=== PATIENT | female | born 1990 | race Caucasian/White ===

== ENCOUNTER 2021-10-28 15:46 | Emergency (ER) | payer MEDICAID, SELFPAY ==
[2021-10-28] MEDS ORDERED: Acetaminophen 500 MG TAB ONE (16:26)
[2021-10-28 16:27] LABS: #Basophils 0.1 10x3/uL (0.0-0.2); #Monocytes 0.6 10x3/uL (0.0-1.1); #Neutrophils 6.1 10x3/uL (1.5-8.4); %Basophils 0.6 % (0.0-2.0); %Lymphocytes 13.1 % (18.0-47.0); %Neutrophils 77.9 % (40.0-75.0); Mean Corpuscular HGB CONC 34.3 g/dL (32.0-36.0); Mean Corpuscular Hemoglobin 30.2 pg (27.0-33.0); Mean Corpuscular Volume 88.1 fl (81.6-98.3); Mean Platelet Volume 8.8 fl (7.4-10.4); Platelet Count 283 10x3/uL (150-450); RBC Distribution Width 13.9 % (11.5-14.5); Red Blood Cell (RBC) Count 4.96 10x6/uL (3.90-5.03); White Blood Cell (WBC) Count 7.9 10x3/uL (3.5-10.5)
[2021-10-28] MEDS ORDERED: Ondansetron PF 4 MG/2 ML Vial ONE (16:27)
[2021-10-28 16:44] LABS: ALT (SGPT) 26 U/L (8-55); AST (SGOT) 17 U/L (5-34); Albumin 4.3 g/dL (3.5-5.0); Alkaline Phosphatase 85 U/L (40-110); Anion Gap 16 mmol/L (10-20); BUN (Urea Nitrogen) 21 mg/dL (7.0-18.7); Bilirubin, Total 0.5 mg/dL (0.2-1.2); Calc. Creatinine Clearance 0 mL/min (70-130); Calcium 8.7 mg/dL (7.8-10.44); Carbon Dioxide 24 mmol/L (22-29); Chloride 100 mmol/L (98-107); Glucose 106 mg/dL (70-105); Lipase 8 U/L (8-78); Potassium 3.5 mmol/L (3.5-5.1); Protein, Total 8.3 g/dL (6.0-8.3); Sodium 136 mmol/L (136-145)
[2021-10-28 17:55] LABS: Bilirubin 1+ (Negative); Blood, Urine 50 (Negative); Clarity Clear (Clear); Glucose, Urine (Dipstick) Normal (Negative); Ketone, Urine Negative (Negative); Leukocyte Negative (Negative); Nitrite Negative (Negative); Protein, Urine (Dipstick) 500 mg/dl (Neg-Trace); Specific Gravity, Urine 1.025 (1.002-1.036); Urobilinogen Normal mg/dL (Less than 2)
[2021-10-28 18:02] LABS: Pregnancy Test - Urine (BHCG) Negative (Negative); Pregu Control Background? CLEAR/WHITE (CLR/WHITE); Pregu Control Bar Appear? YES (CONTROL BAR); Specific Gravity 1.025 (1.002-1.036)
[2021-10-28 18:12] LABS: Bacteria/HPF 2+ HPF (None Seen); WBC/HPF 0-3 HPF (0-3)
[2021-10-28 18:13] LABS: Mucous/LPF 3+ LPF (<2+)
== END 2021-10-28 18:42 | disposition home or self-care (01) ==
LOC: CSHERS 15:46
DX: R11.2 Nausea with vomiting, unspecified (principal); R10.13 Epigastric pain
CPT/HCPCS: 80053; 81003; 81015; 81025; 83605; 83690; 85025; 87040; 87086; 96374; J2405

== ENCOUNTER 2022-12-24 19:43 | Emergency (ER) | payer MEDICAID, OTHER ==
[2022-12-24] MEDS ORDERED: Ketorolac Tromethamine 30 MG/ML VIAL ONE (20:08)
== END 2022-12-24 20:25 | disposition home or self-care (01) ==
LOC: CSHERS 19:43
DX: S39.012A Strain of muscle, fascia and tendon of lower back, initial encounter (principal); M62.838 Other muscle spasm; Y93.E5 Activity, floor mopping and cleaning
CPT/HCPCS: 96372; 99283; J1885

== ENCOUNTER 2024-07-13 20:07 | Day surgery (SDC) | payer OTHER ==
[2024-07-13 20:37] VITALS: BMI 40.1
[2024-07-13] MEDS ORDERED: hydrALAZINE 20 MG/ML VIAL SLOW IVP PRN (21:00)
[2024-07-13] MEDS ORDERED: Ondansetron ODT 4 MG TAB PO PRN (21:00)
[2024-07-13] MEDS: Pantoprazole DR 40 MG TAB PO SCH (21:10)
[2024-07-13] MEDS: Acetaminophen 500 MG TAB PO SCH (21:10)
[2024-07-13 21:52] LABS: #Basophils 0.07 10x3/uL (0.0-0.2); #Eosinophils 0.05 10x3/uL (0.0-0.5); #Monocytes 0.97 10x3/uL (0.0-1.1); #Neutrophils 7.75 10x3/uL (1.5-8.4); %Basophils 0.6 % (0.0-2.0); %Eosinophils 0.5 % (0.0-6.0); %Lymphocytes 17.8 % (18.0-47.0); %Monocytes 8.8 % (0.0-10.0); %Neutrophils 70.1 % (40.0-75.0); Hematocrit 36.5 % (34.9-44.5); Hemoglobin 12.5 g/dL (12.0-15.5); Mean Corpuscular HGB CONC 34.2 g/dL (32.0-36.0); Mean Corpuscular Hemoglobin 30.9 pg (27.0-33.0); Mean Corpuscular Volume 90.3 fL (81.6-98.3); Mean Platelet Volume 9.7 fL (7.4-10.4); Platelet Count 172 10x3/uL (150-450); RBC Distribution Width 13.1 % (11.5-14.5); Red Blood Cell (RBC) Count 4.04 10x6/uL (3.90-5.03); White Blood Cell (WBC) Count 11.1 10x3/uL (3.5-10.5)
[2024-07-13 21:59] LABS: ALT (SGPT) 17 U/L (8-55); AST (SGOT) 15 U/L (5-34); Albumin 2.9 g/dL (3.5-5.0); Alkaline Phosphatase 65 U/L (40-110); Anion Gap 14 mmol/L (10-20); BUN (Urea Nitrogen) 9 mg/dL (7.0-18.7); Bilirubin, Total 0.5 mg/dL (0.2-1.2); Calc. Creatinine Clearance 236 mL/min (70-130); Carbon Dioxide 23 mmol/L (22-29); Chloride 103 mmol/L (98-107); Estimated GFR 119; Globulin 3.8 g/dL (2.4-3.5); Glucose 130 mg/dL (70-105); Lipase 21 U/L (8-78); Magnesium 1.4 mg/dL (1.6-2.6); Potassium 3.3 mmol/L (3.5-5.1); Protein, Total 6.7 g/dL (6.0-8.3); Sodium 137 mmol/L (136-145)
[2024-07-13] MEDS: Magnesium Oxide 400 MG TAB PO SCH (22:39)
[2024-07-13] MEDS: Potassium Chloride 20 MEQ TAB PO SCH (22:39)
[2024-07-13 23:24] LABS: Bilirubin Neg (Negative); Blood, Urine 50 (Negative); Glucose, Urine (Dipstick) Normal (Negative); Ketone, Urine 5 mg/dL (Negative); Leukocyte Negative (Negative); Nitrite Negative (Negative); Protein, Urine (Dipstick) 100 mg/dl (Neg-Trace); Specific Gravity, Urine 1.015 (1.005-1.030); Urobilinogen Normal mg/dL (Less than 2)
[2024-07-13 23:33] LABS: Clarity Hazy (Clear)
[2024-07-13 23:36] LABS: Transitional Epithelial 0-3 HPF (None Seen)
[2024-07-13 23:37] LABS: Bacteria/HPF Rare-Few HPF (None Seen); WBC/HPF 0-3 HPF (0-3); Yeast-Hyphae Rare HPF (None Seen)
[2024-07-13 23:49] LABS: Creatinine, Urine 251.11 mg/dL (47-110)
== END 2024-07-14 00:07 | disposition home or self-care (01) ==
LOC: CSHLD/OP 20:07
PROVIDERS: ATTEND Family Medicine
DX: O21.2 Late vomiting of pregnancy (principal); O24.419 Gestational diabetes mellitus in pregnancy, unspecified control; O13.3 Gestational [pregnancy-induced] hypertension without significant proteinuria, third trimester; O99.613 Diseases of the digestive system complicating pregnancy, third trimester; K52.9 Noninfective gastroenteritis and colitis, unspecified; Z3A.34 34 weeks gestation of pregnancy; Z79.4 Long term (current) use of insulin
CPT/HCPCS: 36415; 80053; 81001; 82570; 83690; 83735; 84156; 85025; 87086; 99284

== ENCOUNTER 2024-08-05 13:40 | Inpatient (IN) | payer OTHER ==
[2024-08-05 18:56] VITALS: BMI 38.7
[2024-08-05] MEDS ORDERED: hydrALAZINE 20 MG/ML VIAL SLOW IVP PRN ×2 (22:48→23:07)
[2024-08-05] MEDS ORDERED: Acetaminophen 500 MG TAB PO SCH (23:00)
[2024-08-05] MEDS ORDERED: Misoprostol 200 MCG TAB PR PRN (23:07)
[2024-08-05] MEDS ORDERED: Butorphanol Tartrate 1 MG/ML VIAL SLOW IVP PRN (23:07)
[2024-08-05] MEDS ORDERED: Carboprost 250 MCG/ML AMP IM PRN (23:07)
[2024-08-05] MEDS ORDERED: Famotidine/PF 20 mg/2ml Vial SLOW IVP PRN (23:07)
[2024-08-05] MEDS ORDERED: Tranexamic Acid 1,000 MG/10 ML VIAL IVP PRN (23:07)
[2024-08-05] MEDS ORDERED: Ondansetron PF 4 MG/2 ML Vial IVP PRN (23:07)
[2024-08-05] MEDS ORDERED: Acetaminophen 500 MG TAB PO PRN (23:07)
[2024-08-05] MEDS ORDERED: Promethazine HCl 25 MG/ML VIAL IM PRN (23:07)
[2024-08-05] MEDS ORDERED: Diphenoxylate HCl/Atropine Tablet PO PRN (23:07)
[2024-08-05] MEDS ORDERED: Bicitra 30 ML UDCUP PO PRN (23:07)
[2024-08-05] MEDS ORDERED: Azithromycin 500 MG in Sodium Chloride 0.9% 250 ML 250 ML IVPB SCH (23:15)
[2024-08-05] MEDS ORDERED: Lactated Ringer's 1,000 ML IV SCH (23:15)
[2024-08-05 23:41] LABS: Hematocrit 36.8 % (34.9-44.5); Hemoglobin 12.9 g/dL (12.0-15.5); Mean Corpuscular HGB CONC 35.1 g/dL (32.0-36.0); Mean Corpuscular Hemoglobin 31.9 pg (27.0-33.0); Mean Corpuscular Volume 90.9 fL (81.6-98.3); Mean Platelet Volume 10.3 fL (7.4-10.4); Platelet Count 221 10x3/uL (150-450); RBC Distribution Width 13.5 % (11.5-14.5); Red Blood Cell (RBC) Count 4.05 10x6/uL (3.90-5.03); White Blood Cell (WBC) Count 11.2 10x3/uL (3.5-10.5)
[2024-08-05 23:44] LABS: ALT (SGPT) 21 U/L (8-55); AST (SGOT) 13 U/L (5-34); Albumin 3.1 g/dL (3.5-5.0); Alkaline Phosphatase 80 U/L (40-110); Anion Gap 16 mmol/L (10-20); BUN (Urea Nitrogen) 8 mg/dL (7.0-18.7); Bilirubin, Total 0.3 mg/dL (0.2-1.2); Calc. Creatinine Clearance 242 mL/min (70-130); Calcium 8.7 mg/dL (7.8-10.44); Carbon Dioxide 19 mmol/L (22-29); Chloride 105 mmol/L (98-107); Estimated GFR 120; Globulin 3.4 g/dL (2.4-3.5); Glucose 134 mg/dL (70-105); Potassium 3.4 mmol/L (3.5-5.1); Protein, Total 6.5 g/dL (6.0-8.3); Sodium 137 mmol/L (136-145)
[2024-08-06 00:04] LABS: Syphilis Antibody Nonreactive (Nonreactive); Syphilis Antibody Index 0.17 S/CO (<1.00 Non-Reactive)
[2024-08-06 00:05] LABS: HBsAg Index 0.19 S/CO (0-0.99); Hep B Surf Ag - L&D Non-Reactive S/CO (NonReactive)
[2024-08-06] MEDS ORDERED: Naloxone HCl 0.4 mg/ml Vial IVP PRN ×2 (07:32)
[2024-08-06] MEDS ORDERED: Moisturizing Cream (Eucerin) 113 GM JAR TOP PRN (07:32)
[2024-08-06] MEDS ORDERED: Naloxone HCl 0.4 mg/ml Vial IV PRN (07:32)
[2024-08-06] MEDS ORDERED: diphenhydrAMINE 50 MG/ML VIAL IVP PRN (07:32)
[2024-08-06] MEDS ORDERED: Meperidine HCl/PF 25 MG (1 mL) VIAL SLOW IVP PRN (07:32)
[2024-08-06] MEDS ORDERED: fentaNYL 50 mcg/mL 1 mL Vial SLOW IVP PRN (07:32)
[2024-08-06] MEDS ORDERED: Ondansetron PF 4 MG/2 ML Vial IVP PRN ×3 (07:32→12:21)
[2024-08-06] MEDS: CEFAZOLIN 2 GM in Sodium Chloride 0.9% 100 ML IVPB SCH (07:37)
[2024-08-06] MEDS: ePHEDrine Sulfate 50 MG/10 ML VIAL ONE ×2 (08:54→12:33)
[2024-08-06] MEDS: Methylergonovine 0.2 MG/ML VIAL IM PRN (10:42)
[2024-08-06] MEDS: Oxytocin 30 units/NS 500 ML 500 ML IV SCH (11:00)
[2024-08-06] MEDS: Promethazine HCl 25 MG/ML VIAL IM PRN (11:34)
[2024-08-06] MEDS ORDERED: Meperidine HCl/PF 25 MG (1 mL) VIAL IM PRN (12:21)
[2024-08-06] MEDS ORDERED: Promethazine HCl 25 MG/ML VIAL IM PRN (12:21)
[2024-08-06] MEDS ORDERED: Bisacodyl 10 MG SUPP PR PRN (12:21)
[2024-08-06] MEDS ORDERED: hydrALAZINE 20 MG/ML VIAL SLOW IVP PRN (12:21)
[2024-08-06] MEDS ORDERED: diphenhydrAMINE 25 MG CAP PO PRN (12:21)
[2024-08-06] MEDS ORDERED: Lanolin Ointment 7 GM TUBE TOP PRN (12:21)
[2024-08-06] MEDS: Dexmedetomidine 200 MCG/2 ML VIAL ONE (12:33)
[2024-08-06] MEDS: CEFAZOLIN 2 GM VIAL ONE (12:33)
[2024-08-06] MEDS: Morphine PF 10 MG/10 ML VIAL ONE (12:34)
[2024-08-06] MEDS: Ondansetron PF 4 MG/2 ML Vial ONE (12:34)
[2024-08-06] MEDS: Ketorolac Tromethamine 30 MG (1 mL) VIAL ONE (12:34)
[2024-08-06] MEDS: PHENYLEPHRINE-NS 100 MCG/ML 10 ML SYRINGE ONE (12:34)
[2024-08-06] MEDS: Oxytocin 10 UNITS/ML VIAL ONE (12:34)
[2024-08-06] MEDS: Phytonadione Neonatal 1 MG/0.5 ML AMP ONE (12:35)
[2024-08-06] MEDS: Erythromycin Base 0.5% Oint 1 GM TUBE ONE (12:35)
[2024-08-06] MEDS: ePHEDrine Sulfate 50 MG/10 ML VIAL SLOW IVP SCH (12:35)
[2024-08-06] MEDS: Phenylephrine 40 MG/NS 250 ML 250 ML ONE (12:35)
[2024-08-06] MEDS: Ferrous Sulfate 325 MG TAB PO SCH ×2 (12:36→20:46)
[2024-08-06] MEDS: Simethicone Chewable 80 MG TAB PO PRN (12:58)
[2024-08-06] MEDS: Docusate 100 MG CAP PO SCH ×2 (12:58→20:52)
[2024-08-06] MEDS: Prenatal Vitamin 1 TAB PO SCH (12:58)
[2024-08-06] MEDS: Boostrix 0.5 ML (Tdap) VIAL (>/=7 yrs of age) IM ONE (12:59)
[2024-08-06] MEDS: Ketorolac Tromethamine 30 MG (1 mL) VIAL IVP SCH (14:23)
[2024-08-06] MEDS ORDERED: Ketorolac Tromethamine 30 MG (1 mL) VIAL IVP PRN (15:00)
[2024-08-06] MEDS ORDERED: Ketorolac Tromethamine 30 MG (1 mL) VIAL IVP SCH (15:00)
[2024-08-06] MEDS: HYDROcodone/Acetaminophen 5/325 mg Tablet PO PRN (17:49)
[2024-08-06] MEDS ORDERED: Diphenoxylate HCl/Atropine Tablet PO PRN (19:35)
[2024-08-07 04:28] LABS: Hemoglobin 10.5 g/dL (12.0-15.5); Mean Corpuscular Hemoglobin 32.4 pg (27.0-33.0); Mean Corpuscular Volume 92.6 fL (81.6-98.3); Mean Platelet Volume 9.9 fL (7.4-10.4); Platelet Count 180 10x3/uL (150-450); RBC Distribution Width 13.7 % (11.5-14.5); Red Blood Cell (RBC) Count 3.24 10x6/uL (3.90-5.03)
[2024-08-07] MEDS: Ibuprofen 800 MG TAB PO SCH (09:17)
[2024-08-07] MEDS: Prenatal Vitamin 1 TAB PO SCH (09:18)
[2024-08-07] MEDS: HYDROcodone/Acetaminophen 5/325 mg Tablet PO PRN (09:19)
[2024-08-09 07:56] VITALS: BP 119/67; TEMP 97.9
== END 2024-08-09 12:50 | disposition home or self-care (01) | DRG 788 ==
LOC: CSHLD 18:23 → CSHPP 08-06 12:07
PROVIDERS: ADMIT Family Medicine; ATTEND Family Medicine
PROC: 10D00Z1 Extraction of Products of Conception, Low, Open Approach (ICD-10-PCS; principal; 2024-08-06)
DX: O32.8XX0 Maternal care for other malpresentation of fetus, not applicable or unspecified (principal); Z3A.37 37 weeks gestation of pregnancy; Z37.0 Single live birth; O24.424 Gestational diabetes mellitus in childbirth, insulin controlled; Z79.4 Long term (current) use of insulin; Z79.82 Long term (current) use of aspirin; Z79.899 Other long term (current) drug therapy; O99.214 Obesity complicating childbirth; E66.9 Obesity, unspecified
CPT/HCPCS: 36415; 51702; 80053; 85027; 86780; 86850; 86900; 86901; 87340; J1885; J2210; J2274; J2405; J2550; J2590